=== PATIENT | male | born 1960 ===

== ENCOUNTER 2016-10-15 20:22 | Emergency (ER) | payer OTHER ==
[2016-10-15 20:38] VITALS: BP 132/81; PULSE 74; RESP 16; TEMP 98.4; O2SAT 100
--- NOTE | 2016-10-15 21:01 | ED PDOC ---
HPI: Allergic Reaction Time Seen by Provider: 10/15/16 20:48 Chief Complaint (Nursing): Abnormal Skin Integrity Chief Complaint (Provider): Rash History Per: Patient History/Exam Limitations: no limitations Onset/Duration Of Symptoms: Days (since yesterday) Current Symptoms Are (Timing): Still Present Context: Food Possible Cause: Food (onset approximately 5-10 minutes after eating chocolate for the first time) Associated Symptoms: Skin Rash, Swelling (throat pain/swelling, still able to swallow/tolerate PO), Itching Home/EMS Treatment: None Additional Complaint(s): Ander Krishnan is a 55 year old male, with no pertinent past medical or allergic history, who presents to the ED on 10/15/16 for the evaluation of a diffuse, pruritic rash that he had developed last night approximately 5-10 minutes after eating chocolate for the first time. Some associated throat pain/ swelling also reported, though patient reports no difficulty swallowing and has since been able to tolerate PO. Further denies chest pain, shortness of breath, cough, vomiting, abdominal pain or lip/tongue/extremity swelling. Patient has taken no medications for symptom relief prior to arrival. PMD: [facility] Past Medical History Reviewed: Historical Data, Nursing Documentation, Vital Signs Vital Signs: Last Vital Signs Temp 98.4 F 10/15/16 20:33 Pulse 74 10/15/16 20:33 Resp 16 10/15/16 20:33 BP 132/81 10/15/16 20:33 Pulse Ox 100 10/15/16 20:33 - Medical History PMH: Benign Prostatic Hyperplasia, Gastritis - Surgical History Surgical History: No Surg Hx - Family History Family History: States: No Known Family Hx - Living Arrangements Living Arrangements: With Family - Social History Current smoker - smoking cessation education provided: No Alcohol: None Drugs: Denies - Home Medications Home Medications: Ambulatory Orders Medication Instructions Recorded Omeprazole [Prilosec] 20 mg PO DAILY 10/17/15 Tamsulosin [Flomax] 0.4 mg PO DAILY 10/17/15 DiphenhydrAMINE [Benadryl] 25 mg PO ASDIR #1 packet 10/15/16 Prednisone 50 mg PO DAILY #5 tablet 10/15/16 - Allergies Allergies/Adverse Reactions: Allergies Allergy/AdvReac Type Severity Reaction Status Date / Time No Known Allergies Allergy Verified 10/15/16 20:33 Review of Systems ROS Statement: Except As Marked, All Systems Reviewed And Found Negative ENT: Positive for: Throat Pain, Throat Swelling (but still able to swallow/ tolerate PO) Cardiovascular: Negative for: Chest Pain Respiratory: Negative for: Cough, Shortness of Breath Gastrointestinal: Negative for: Vomiting, Abdominal Pain Skin: Positive for: Rash (diffuse, pruritic) Physical Exam - Reviewed Nursing Documentation Reviewed: Yes Vital Signs Reviewed: Yes - Physical Exam Appears: Positive for: Non-toxic, No Acute Distress Head Exam: Positive for: ATRAUMATIC, NORMOCEPHALIC Skin: Positive for: Normal Color, Warm, Dry, Rash (diffuse fine rash noted to entire body) Eye Exam: Positive for: Normal appearance, PERRL ENT: Positive for: Pharynx Is ((+) mild uvular edema, airway is patent) Neck: Positive for: Normal, Painless ROM, Supple Cardiovascular/Chest: Positive for: Regular Rate, Rhythm. Negative for: Murmur Respiratory: Positive for: Normal Breath Sounds. Negative for: Stridor, Wheezing, Respiratory Distress Extremity: Positive for: Normal ROM. Negative for: Pedal Edema, Swelling Neurologic/Psych: Positive for: Alert, Oriented - ECG O2 Sat by Pulse Oximetry: 100 (RA) Pulse Ox Interpretation: Normal Disposition - Clinical Impression Clinical Impression: Food allergy - Patient ED Disposition Is Patient to be Admitted: No Counseled Patient/Family Regarding: Diagnosis, Need For Followup, Rx Given - Disposition Referrals: [facility] [Outside] Disposition: Routine/Home Disposition Time: 21:14 Condition: STABLE Additional Instructions: Take rx meds as directed. Follow up with clinic in 2-3 days or return any time if acutely worse. Prescriptions: DiphenhydrAMINE [Benadryl] 25 mg PO ASDIR #1 packet Prednisone 50 mg PO DAILY #5 tablet Instructions: Food Allergy (ED) Print Language: EQUATORIAL GUINEAN Medical Decision Making Medical Decision Makin:48 Initial Impression: allergic reaction Initial Plan: * Solu-Medrol 125mg IM * Benadryl 50mg PO * Reevaluation Patient tolerated meds well, rx given for benadryl and prednisone. Patient was instructed to follow up with clinic in 2-3 days. Scribe Attestation: Documented by Kristina Sandoval, acting as a scribe for Pascale Alvarado PA-C. Provider Scribe Attestation: All medical record entries made by the Scribe were at my direction and personally dictated by me. I have reviewed the chart and agree that the record accurately reflects my personal performance of the history, physical exam, medical decision making, and the department course for this patient. I have also personally directed, reviewed, and agree with the discharge instructions and disposition.
== END 2016-10-15 22:04 | disposition home or self-care (01) ==
LOC: H.ER 20:22
DX: T78.40XA Allergy, unspecified, initial encounter (principal)

== ENCOUNTER 2016-12-08 18:30 | Emergency (ER) | payer SELFPAY ==
[2016-12-08 18:40] VITALS: BP 142/79; PULSE 87; RESP 16; TEMP 98.8; O2SAT 95
--- NOTE | 2016-12-08 18:55 | ED PDOC ---
HPI: General Adult Time Seen by Provider: 12/08/16 18:30 Chief Complaint (Nursing): ENT Problem Chief Complaint (Provider): ENT Problem History Per: Patient History/Exam Limitations: no limitations Onset/Duration Of Symptoms: Days (x2 days) Current Symptoms Are (Timing): Still Present Additional Complaint(s): 56 y/o male presents to the emergency department with a complaint of a sore throat x2 days. Associated with nasal congestion and nasal discharge. Patient states he feels like his "tonsils are inflamed." Reports taking Cepacol and Benadryl with mild relief of pain. Denies fever, chills, cough, or seasonal allergies. Of note, patient was seen in the ED about 2 months ago and was prescribed prednisone. PMD: Dr. Neema Reese MD Past Medical History Reviewed: Historical Data, Nursing Documentation, Vital Signs Vital Signs: Last Vital Signs Temp 98.8 F 12/08/16 18:36 Pulse 87 12/08/16 18:36 Resp 16 12/08/16 18:36 BP 142/79 12/08/16 18:36 Pulse Ox 95 12/08/16 19:43 - Medical History PMH: Benign Prostatic Hyperplasia, Gastritis - Surgical History Surgical History: No Surg Hx - Family History Family History: States: Unknown Family Hx - Immunization History Hx Tetanus Toxoid Vaccination: No Hx Influenza Vaccination: No Hx Pneumococcal Vaccination: No - Home Medications Home Medications: Ambulatory Orders Medication Instructions Recorded Omeprazole [Prilosec] 20 mg PO DAILY 10/17/15 Tamsulosin [Flomax] 0.4 mg PO DAILY 10/17/15 DiphenhydrAMINE [Benadryl] 25 mg PO ASDIR #1 packet 10/15/16 Prednisone 50 mg PO DAILY #5 tablet 10/15/16 Cetirizine HCl [Zyrtec] 10 mg PO DAILY #14 tab.rapdis 12/08/16 Fluticasone Nasal [Flonase] 2 actuation NS DAILY #1 spr 12/08/16 Pseudoephedrine [Sudafed Tab] 60 mg PO Q6 PRN #24 tab 12/08/16 - Allergies Allergies/Adverse Reactions: Allergies Allergy/AdvReac Type Severity Reaction Status Date / Time No Known Allergies Allergy Verified 12/08/16 18:36 Review of Systems ROS Statement: Except As Marked, All Systems Reviewed And Found Negative Constitutional: Negative for: Fever, Chills, Other (Seasonal allergies) ENT: Positive for: Nose Discharge, Nose Congestion, Throat Pain (Sore throat) Respiratory: Negative for: Cough Physical Exam - Reviewed Nursing Documentation Reviewed: Yes Vital Signs Reviewed: Yes - Physical Exam Appears: Positive for: Non-toxic, No Acute Distress Head Exam: Positive for: ATRAUMATIC, NORMAL INSPECTION, NORMOCEPHALIC Skin: Positive for: Normal Color, Warm, Dry Eye Exam: Positive for: Conjunctival injection (Mild). Negative for: Normal appearance ENT: Positive for: Pharyngeal Erythema (Minimal). Negative for: Normal ENT Inspection Neck: Positive for: Normal, Supple Cardiovascular/Chest: Positive for: Regular Rate, Rhythm. Negative for: Murmur Respiratory: Positive for: Normal Breath Sounds. Negative for: Accessory Muscle Use, Respiratory Distress Neurologic/Psych: Positive for: Alert, Oriented - ECG O2 Sat by Pulse Oximetry: 95 (RA) Pulse Ox Interpretation: Normal - Progress ED Course And Treament: strep: neg Medical Decision Making Medical Decision Making: Time: 18:30 Initial Impression: Sore throat/Nasal congestion Initial Plan: --Motrin 600 mg PO --Rapid Strep Group Antigen --Revaluation Time: 19:00 --Rapid Strep Group Antigen: Negative Scribe Attestation: Documented by Mitra Metcalf, acting as a scribe for Medina Dan PA-C. Provider Scribe Attestation: All medical record entries made by the Scribe were at my direction and personally dictated by me. I have reviewed the chart and agree that the record accurately reflects my personal performance of the history, physical exam, medical decision making, and the department course for this patient. I have also personally directed, reviewed, and agree with the discharge instructions and disposition. Disposition - Clinical Impression Clinical Impression: Sore throat, Nasal congestion - Patient ED Disposition Is Patient to be Admitted: No - Disposition Disposition: Routine/Home Disposition Time: 19:49 Condition: FAIR Prescriptions: Cetirizine HCl [Zyrtec] 10 mg PO DAILY #14 tab.rapdis Fluticasone Nasal [Flonase] 2 actuation NS DAILY #1 spr Pseudoephedrine [Sudafed Tab] 60 mg PO Q6 PRN #24 tab PRN Reason: Nasal Congestion Instructions: Allergic Rhinitis (ED) Forms: [facility] ED School/Work Excuse Print Language: CZECH
== END 2016-12-08 20:13 | disposition home or self-care (01) ==
LOC: H.ER 18:30
DX: J02.9 Acute pharyngitis, unspecified (principal); R09.81 Nasal congestion

== ENCOUNTER 2018-10-28 18:34 | Emergency (ER) | payer SELFPAY ==
--- NOTE | 2018-10-28 19:26 | ED PDOC ---
HPI: Allergic Reaction Time Seen by Provider: 10/28/18 19:12 Chief Complaint (Nursing): Allergic Reaction Chief Complaint (Provider): Allergic Reaction History Per: Patient History/Exam Limitations: no limitations Onset/Duration Of Symptoms: Days (x3) Current Symptoms Are (Timing): Still Present Additional Complaint(s): 57 y/o male, with a history of gastritis, presents to the ER with a 3 day history of itchiness and redness to his arms, back, neck, and torso after he took Dayquil for a viral illness 4 days ago. Patient took Benadryl 2 days ago with minimal relief. He states that the itchiness and redness was worsening prompting ED visit. He denies chest pain, shortness of breath, diarrhea, or abdominal pain. PMD: none Past Medical History Reviewed: Historical Data, Nursing Documentation, Vital Signs Vital Signs: Last Vital Signs Temp 97.8 F 10/28/18 18:46 Pulse 88 10/28/18 18:46 Resp 19 10/28/18 18:46 BP 115/70 10/28/18 18:46 Pulse Ox 97 10/28/18 18:46 Primary Care Provider: FAMILY PROVIDER,NO - Medical History PMH: Benign Prostatic Hyperplasia, Gastritis - Surgical History Surgical History: No Surg Hx - Family History Family History: States: Unknown Family Hx - Immunization History Hx Tetanus Toxoid Vaccination: No Hx Influenza Vaccination: No Hx Pneumococcal Vaccination: No - Home Medications Home Medications: Ambulatory Orders Medication Instructions Recorded Omeprazole [Prilosec] 20 mg PO DAILY 10/17/15 Tamsulosin [Flomax] 0.4 mg PO DAILY 10/17/15 DiphenhydrAMINE [Benadryl] 25 mg PO ASDIR #1 packet 10/15/16 Prednisone 50 mg PO DAILY #5 tablet 10/15/16 Cetirizine HCl [Zyrtec] 10 mg PO DAILY #14 tab.rapdis 12/08/16 Fluticasone Nasal [Flonase] 2 actuation NS DAILY #1 spr 12/08/16 Pseudoephedrine [Sudafed Tab] 60 mg PO Q6 PRN #24 tab 12/08/16 DiphenhydrAMINE [Benadryl] 50 mg PO Q6H PRN #30 cap 10/28/18 Famotidine [Pepcid] 20 mg PO HS #30 tab 10/28/18 predniSONE [predniSONE Tab] 60 mg PO DAILY #12 tab 10/28/18 - Allergies Allergies/Adverse Reactions: Allergies Allergy/AdvReac Type Severity Reaction Status Date / Time No Known Allergies Allergy Verified 12/08/16 18:36 Review of Systems ROS Statement: Except As Marked, All Systems Reviewed And Found Negative Cardiovascular: Negative for: Chest Pain Respiratory: Negative for: Shortness of Breath Gastrointestinal: Negative for: Abdominal Pain, Diarrhea Skin: Positive for: Other (Itchiness and redness to arms, back, neck, and torso) Physical Exam - Reviewed Nursing Documentation Reviewed: Yes Vital Signs Reviewed: Yes - Physical Exam Appears: Positive for: No Acute Distress Head Exam: Positive for: ATRAUMATIC, NORMOCEPHALIC Eye Exam: Positive for: Normal appearance Neck: Positive for: Normal, Painless ROM Cardiovascular/Chest: Positive for: Regular Rate, Rhythm Respiratory: Positive for: Normal Breath Sounds. Negative for: Wheezing, Respiratory Distress Extremity: Positive for: Normal ROM Neurological/Psych: Positive for: Awake, Alert, Normal Tone Comments: SKIN: Confluent redness to his torso, back, and arms. Slight redness to lower extremities. - ECG O2 Sat by Pulse Oximetry: 97 (RA) Pulse Ox Interpretation: Normal Disposition - Clinical Impression Clinical Impression: Allergic reaction - Patient ED Disposition Is Patient to be Admitted: No Counseled Patient/Family Regarding: Diagnosis, Rx Given - Disposition Referrals: FAMILY PROVIDER,NO [Family Provider] - [facility] [Outside] Disposition: Routine/Home Disposition Time: 19:33 Condition: IMPROVED Prescriptions: DiphenhydrAMINE [Benadryl] 50 mg PO Q6H PRN #30 cap PRN Reason: Itching / Pruritus Famotidine [Pepcid] 20 mg PO HS #30 tab predniSONE [predniSONE Tab] 60 mg PO DAILY #12 tab Instructions: Allergy Skin Testing Print Language: THAI - POA Present On Arrival: None Medical Decision Making Medical Decision Making: Initial Impression: Allergic reaction Initial Plan: --Benadryl 50mg PO --Prednisone 60mg PO --Pepcid 20mg PO --Reassess patient 19:30 Patient re-evaluated at this time. Redness to torso and back improved as well as itchiness. No further work-up needed in ED. Patient stable for D/C home. Rx given for benadryl, prednisone and pepcid. Patient advised no driving or operating heavy machinery while taking benadryl as it can make him drowsy. patient verbalzed understanding and agrees with plan. D/C instructions given by me in Wallisian. Scribe Attestation: Documented by Jaden Chavez acting as a scribe for Melba Washburn NP. Provider Scribe Attestation: All medical record entries made by the Scribe were at my direction and personally dictated by me. I have reviewed the chart and agree that the record accurately reflects my personal performance of the history, physical exam, medical decision making, and the department course for this patient. I have also personally directed, reviewed, and agree with the discharge instructions and d isposition.
--- NOTE | 2018-10-28 19:26 | ED PDOC ---
HPI: Allergic Reaction Chief Complaint (Nursing): Allergic Reaction Past Medical History Vital Signs: Last Vital Signs Temp 97.8 F 10/28/18 18:46 Pulse 88 10/28/18 18:46 Resp 19 10/28/18 18:46 BP 115/70 10/28/18 18:46 Pulse Ox 97 10/28/18 18:46 Primary Care Provider: FAMILY PROVIDER,NO - Medical History PMH: Benign Prostatic Hyperplasia, Gastritis - Family History Family History: States: Unknown Family Hx - Immunization History Hx Tetanus Toxoid Vaccination: No Hx Influenza Vaccination: No Hx Pneumococcal Vaccination: No - Home Medications Home Medications: Ambulatory Orders Medication Instructions Recorded Omeprazole [Prilosec] 20 mg PO DAILY 10/17/15 Tamsulosin [Flomax] 0.4 mg PO DAILY 10/17/15 DiphenhydrAMINE [Benadryl] 25 mg PO ASDIR #1 packet 10/15/16 Prednisone 50 mg PO DAILY #5 tablet 10/15/16 Cetirizine HCl [Zyrtec] 10 mg PO DAILY #14 tab.rapdis 12/08/16 Fluticasone Nasal [Flonase] 2 actuation NS DAILY #1 spr 12/08/16 Pseudoephedrine [Sudafed Tab] 60 mg PO Q6 PRN #24 tab 12/08/16 - Allergies Allergies/Adverse Reactions: Allergies Allergy/AdvReac Type Severity Reaction Status Date / Time No Known Allergies Allergy Verified 12/08/16 18:36 - ECG O2 Sat by Pulse Oximetry: 97 Disposition - Disposition Referrals: FAMILY PROVIDER,NO [Primary Care Provider] -
[2018-10-28 21:05] VITALS: BP 120/70; PULSE 72; RESP 18; TEMP 98
[2018-10-29 01:10] VITALS: O2SAT 97
== END 2018-10-28 21:04 | disposition home or self-care (01) ==
LOC: SUPCPDRO 18:34 → H.ER 18:34
DX: T78.40XA Allergy, unspecified, initial encounter (principal); N40.0 Benign prostatic hyperplasia without lower urinary tract symptoms